=== PATIENT | female | born 2000 | race Caucasian/White ===

== ENCOUNTER 2021-12-16 12:47 | Emergency (ER) | payer OTHER ==
[~2021-12-16] VITALS: Ht 152.4 cm; Wt 52.2 kg
[2021-12-16 13:24] VITALS: BP 115/70
[2021-12-16] MEDS ORDERED: LORazepam 1 MG TAB PO ONE (14:40)
--- NOTE | 2021-12-16 15:15 | NUR ---
CALLED FOR PT IN LOBBY AND OUTSIDE, NO RESPONSE
--- NOTE | 2021-12-16 15:22 | NUR ---
MEDICATION ADMINISTERED
--- NOTE | 2021-12-16 15:26 | NUR ---
C/O FULL BODY TWITCHING, OBSERVED OCCASIONAL FULL BODY TWICH. DENIES INJURY. NO C/O CHEST PAIN AT THIS MOMENT. PMH: ASTHMA MEDS: PREVENTER INHALER, CLARITN
[2021-12-16 15:30] LABS: BASOPHILS % (AUTO) 0.3 % (0.0-2.0); EOSINOPHILS % (AUTO) 0.8 % (0.0-4.0); HEMATOCRIT 41.6 % (36-48); HEMOGLOBIN 13.7 g/dL (12.0-16.0); LYMPHOCYTES % (AUTO) 30.3 % (20.5-51.1); MEAN CORPUSCULAR HEMOGLOBIN 30 pg (27-31); MEAN CORPUSCULAR HGB CONC 33 g/dL (33-37); MEAN CORPUSCULAR VOLUME 89.5 fL (80-94); MONOCYTES % (AUTO) 8.3 % (1.7-9.3); NEUTROPHILS % (AUTO) 60.3 % (42.2-75.2); PLATELET COUNT (AUTO) 284 K/uL (140-450); RED BLOOD CELL COUNT(AUTO) 4.65 MIL/uL (4.20-5.40); RED CELL DISTRIBUTION WIDTH 12.3 % (11.6-13.7); WHITE BLOOD COUNT (AUTO) 8.8 K/uL (4.8-10.8)
[2021-12-16 15:31] LABS: EOSINOPHILS # (AUTO) 0.1 K/uL (0-0.4); LYMPHOCYTES # (AUTO) 2.7 K/uL (2.5-16.5); MONOCYTES # (AUTO) 0.7 K/uL (0.8-1.0); NEUTROPHILS # (AUTO) 5.3 K/uL (1.8-7.7)
[2021-12-16 15:43] LABS: ALBUMIN 4.3 g/dL (3.4-5.0); ANION GAP 12.2 (8-16); CARBON DIOXIDE 28.3 mmol/L (21-32); CREATININE 0.5 mg/dL (0.6-1.3); MAGNESIUM 1.7 mg/dL (1.8-2.4); PHOSPHORUS 3.5 mg/dL (2.5-4.9); POTASSIUM 3.5 mmol/L (3.5-5.1); TOTAL BILIRUBIN 0.2 mg/dL (0.0-1.0)
[2021-12-16] MEDS ORDERED: MAGNESIUM OXIDE 400 MG TAB PO ONE (17:15)
[2021-12-16 17:30] VITALS: BP 110/81
--- NOTE | 2021-12-16 17:34 | NUR ---
Patient discharged with v/s stable. Written and verbal after care instructions given and explained. Patient verbalized understanding. Ambulatory with steady gait. All questions addressed prior to discharge. Advised to follow up with PMD. Copy of blood work results provided to patient.
== END 2021-12-16 17:34 | disposition home or self-care (01) ==
LOC: MED 12:47
DX: R25.2 Cramp and spasm (principal); E83.42 Hypomagnesemia; J45.909 Unspecified asthma, uncomplicated; F41.9 Anxiety disorder, unspecified
CPT/HCPCS: 36415; 80053; 82330; 83735; 84100; 84443; 85025; 93005; 99284